=== PATIENT | female | born 1940 | race Caucasian/White ===

== ENCOUNTER → 2019-11-25 | Outpatient (CLI) | payer MEDICARE, OTHER ==
--- NOTE | 2019-11-25 18:00 | Diagnostic Imaging Report ---
SCAPULA RIGHT - 3 views HISTORY: Pain COMPARISON: None available. FINDINGS: See impression. IMPRESSION: No evidence of acute displaced fracture or dislocation. If there is high clinical concern for fracture, consider obtaining CT for further evaluation. Signed by: Dr. Oh Solis MD on 11/25/2019 5:58 PM
== END ==
LOC: RAD 17:06
PROVIDERS: ATTEND Surgery
DX: M25.511 Pain in right shoulder (principal); M89.8X1 Other specified disorders of bone, shoulder

== ENCOUNTER 2023-03-09 15:16 | Emergency (ER) | payer OTHER, MEDICARE ==
[~2023-03-09] VITALS: Ht 157.5 cm; Wt 79.4 kg
[2023-03-09 15:26] VITALS: O2SAT 100
[2023-03-09] MEDS ORDERED: TETANUS/DIPHTHERIA TOX ADULT 0.5 ML SYR IM ONE (15:30)
[2023-03-09] MEDS ORDERED: AMOX TR-K CLV1 EAC2 PO ×2 (15:32→16:24)
[2023-03-09] MEDS ORDERED: AMOXICILLIN/CLAVULANATE K 875 MG TAB ONE (15:38)
[2023-03-09] MEDS ORDERED: CLEOCIN HCL300 MG PO (15:43)
[2023-03-09] MEDS ORDERED: DOXYCYCLINE HY100 MG PO (15:43)
[2023-03-09] MEDS ORDERED: CLINDAMYCIN HCL 150 MG CAP PO ONE (15:45)
[2023-03-09] MEDS: AMOXICILLIN/CLAVULANATE K 875 MG TAB PO STA ×2 (15:46→16:31)
[2023-03-09] MEDS ORDERED: DOXYCYCLINE HYCLATE TABLET 100 MG TAB PO SCH (16:00)
== END 2023-03-09 16:34 | disposition home or self-care (01) ==
LOC: ER 15:21
DX: S80.811A Abrasion, right lower leg, initial encounter (principal); W55.03XA Scratched by cat, initial encounter; W55.01XA Bitten by cat, initial encounter; Y92.89 Other specified places as the place of occurrence of the external cause; E03.9 Hypothyroidism, unspecified; M79.7 Fibromyalgia
CPT/HCPCS: 90471; 90714; 99283